=== PATIENT | male | born 1980 | race African-American/Black ===

== ENCOUNTER 2017-02-23 13:35 | Inpatient (IN) | payer OTHER ==
[2017-02-23 15:31] VITALS: BMI 23.1
--- NOTE | 2017-02-23 15:34 | HP ---
CIWA Score - CIWA Score Nausea/Vomitin Muscle Tremors: 2 Anxiety: 2 Agitation: 2 Paroxysmal Sweats: 2 Orientation: 1-Uncertain about Date Tacttile Disturbances: 1-Very Mild Itch/Numbness Auditory Disturbances: 0-None Visual Disturbances: 1-Very Mild Sensitivity Headache: 2-Mild CIWA-Ar Total Score: 15 Admission ROS BHS - HPI Chief Complaint: I want to stop drinking alcohol Allergies/Adverse Reactions: Allergies Allergy/AdvReac Type Severity Reaction Status Date / Time No Known Allergies Allergy Verified 02/23/17 15:35 History of Present Illness: 36 y/o AA male with alcohol dependence presents for rehab. He reports a few detox treatments in the past with no periods of sobriety. Exam Limitations: No Limitations - Ebola screening Have you traveled outside of the country in the last 21 days: No Have you had contact with anyone from an Ebola affected area: No Have you been sick,other than usual withdrawal symptoms: No Do you have a fever: No - Review of Systems Constitutional: No Symptoms Reported EENT: reports: No Symptoms Reported Respiratory: reports: No Symptoms reported Cardiac: reports: No Symptoms Reported GI: reports: Poor Appetite, Poor Fluid Intake, Abdominal cramping : reports: No Symptoms Reported Musculoskeletal: reports: No Symptoms Reported Integumentary: reports: No Symptoms Reported Neuro: reports: Headache, Tremors (mild) Endocrine: reports: No Symptoms Reported Hematology: reports: No Symptoms Reported Psychiatric: reports: Anxious, Depressed Other Systems: Reviewed and Negative Patient History - Patient Medical History Hx Anemia: No Hx Asthma: No Hx Chronic Obstructive Pulmonary Disease (COPD): No Hx Cancer: No Hx Cardiac Disorders: No Hx Congestive Heart Failure: No Hx Hypertension: No Hx Hypercholesterolemia: No Hx Pacemaker: No HX Cerebrovascular Accident: No Hx Seizures: No Hx Dementia: No Hx Diabetes: No Hx Gastrointestinal Disorders: No Hx Liver Disease: No Hx Genitourinary Disorders: No Hx Sexually Transmitted Disorders: No Hx Renal Disease (ESRD): No Hx Thyroid Disease: No Hx Human Immunodeficiency Virus (HIV): No Hx Hepatitis C: No Hx Depression: Yes Hx Suicide Attempt: No Hx Bipolar Disorder: No Hx Schizophrenia: No - Patient Surgical History Past Surgical History: Yes Hx Genitourinary Surgery: Yes (r/t testicular cancer) Hx Orthopedic Surgery: No Anesthesia Reaction: No - PPD History Previous Implant?: Yes Documented Results: Negative w/o proof Implanted On Prior [facility] Admission?: No - Smoking Cessation Smoking history: Current every day smoker Have you smoked in the past 12 months: Yes Aproximately how many cigarettes per day: 10 Hx Chewing Tobacco Use: No Initiated information on smoking cessation: Yes 'Breaking Loose' booklet given: 02/23/17 - Substance & Tx. History Hx Alcohol Use: Yes Hx Substance Use: Yes Substance Use Type: Alcohol, Marijuana Hx Substance Use Treatment: Yes - Substances Abused Alcohol Route: Oral Frequency: Daily Amount used: 2 pints Age of first use: 31 Date of Last Use: 02/23/17 Marijuana/Hashish Route: Smoking Frequency: 1-3 times last 30 days Amount used: $20 Age of first use: 10 Date of Last Use: 02/22/17 Family Disease History - Family Disease History Family History: Unable to Obtain Admission Physical Exam [facility] - Physical General Appearance: Yes: No Apparent Distress, Disheveled HEENTM: Yes: Hearing grossly Normal, Normal ENT Inspection, Normocephalic, Normal Voice Respiratory: Yes: Chest Non-Tender, Lungs Clear, Normal Breath Sounds, No Respiratory Distress, No Accessory Muscle Use Neck: Yes: No masses,lesions,Nodules, Supple, Trachea in good position Breast: Yes: Breast Exam Deferred Cardiology: Yes: Regular Rhythm, Regular Rate, S1, S2 Abdominal: Yes: Normal Bowel Sounds, Non Tender, Flat, Soft Genitourinary: Yes: Within Normal Limits Back: Yes: Normal Inspection Musculoskeletal: Yes: full range of Motion, Gait Steady, Pelvis Stable Extremities: Yes: Normal Capillary Refill, Normal Inspection, Normal Range of Motion Neurological: Yes: information scientist II-XII NML intact, Fully Oriented, Alert, Motor Strength 5/5, Normal Response Integumentary: Yes: Normal Color Lymphatic: Yes: Within Normal Limits - Diagnostic (1) Alcohol dependence with uncomplicated withdrawal Current Visit: Yes Status: Acute (2) Cannabis dependence Current Visit: Yes Status: Acute (3) Nicotine dependence Current Visit: Yes Status: Acute Qualifiers: Nicotine product type: cigarettes Substance use status: uncomplicated Qualified Code(s): F17.210 - Nicotine dependence, cigarettes, uncomplicated Cleared for Admission S - Detox or Rehab [facility] Level of Care: Medically Managed Detox Regimen/Protocol: Librium
[2017-02-23] MEDS ORDERED: diphenhydrAMINE HCL 50 MG CAPSULE PO PRN (16:01)
[2017-02-23] MEDS ORDERED: MENTHOL/PHENOL 1 EACH UD MM PRN (16:01)
[2017-02-23] MEDS ORDERED: IBUPROFEN 400 MG TABLET (FP) PO PRN (16:01)
[2017-02-23] MEDS ORDERED: MAGNESIUM CITRATE 300 ML BOTTLE PO PRN (16:01)
[2017-02-23] MEDS ORDERED: hydrOXYzine PAMOATE 50 MG CAPSULE (FP) PO PRN (16:01)
[2017-02-23] MEDS ORDERED: MAG HYDROX/AL HYDROX/SIMETH 30 ML UNIT-DOSE CUP PO PRN (16:01)
[2017-02-23] MEDS ORDERED: P-EPHED 60MG/TRIPROLIDI 2.5MG TABLET PO PRN (16:01)
[2017-02-23] MEDS ORDERED: MAGNESIUM HYDROX 2400MG/30ML ORAL SUSPENSION 30 ML CUP PO PRN (16:01)
[2017-02-23] MEDS ORDERED: ACETAMINOPHEN 325 MG TABLET (FP) PO PRN (16:01)
[2017-02-23] MEDS ORDERED: chlordiazePOXIDE HCL 25 MG CAPSULE PO ONE (16:01)
[2017-02-23] MEDS ORDERED: chlordiazePOXIDE HCL 25 MG CAPSULE PO PRN (16:01)
[2017-02-23] MEDS ORDERED: LOPERAMIDE HCL 2 MG CAPSULE PO PRN (16:01)
[2017-02-23] MEDS ORDERED: NICOTINE POLACRILEX 2 MG GUM BC PRN (16:01)
[2017-02-23] MEDS ORDERED: guaiFENesin/D-METHORPHAN HB 10 ML UNIT-DOSE CUPS PO PRN (16:01)
[2017-02-23] MEDS: chlordiazePOXIDE HCL 25 MG CAPSULE PO SCH ×3 (20:31→22:38)
[2017-02-23] MEDS: NICOTINE 14 MG/24 HOURS TOPICAL PATCH TD SCH (20:32)
[2017-02-23] MEDS ORDERED: THIAMINE HCL 100 MG TABLET (FP) PO SCH (22:00)
[2017-02-24] MEDS: chlordiazePOXIDE HCL 25 MG CAPSULE PO SCH ×2 (06:05→11:04)
[2017-02-24 09:30] LABS: MCH 31.7 pg (25.7-33.7); MCHC 33.4 g/dl (32.0-35.9); MEAN CELL VOLUME 94.8 fl (80-96); MEAN PLT VOLUME 7.6 fl (7.5-11.1); PLATELET COUNT 240 K/MM3 (134-434); RDW 12.8 % (11.9-15.9); WHITE BLOOD COUNT 4.1 K/mm3 (4.0-10.0)
[2017-02-24 09:39] LABS: ALBUMIN 3.5 g/dl (3.4-5.0); ANION GAP 10 (8-16); CALCIUM 8.6 mg/dL (8.5-10.1); CO2 27 mmol/L (21-32); GLUCOSE,RANDOM 99 mg/dL (74-106)
[2017-02-24 09:43] LABS: ALK PHOS 75 U/L (45-117); BILIRUBIN,TOTAL 0.4 mg/dL (0.2-1.0); COCKROFT - GAULT 115.98; CREATININE 0.8 mg/dL (0.7-1.3); SGOT/AST 21 U/L (15-37); SGPT/ALT 27 U/L (12-78); TOT PROT 6.4 g/dl (6.4-8.2)
[2017-02-24] MEDS ORDERED: PRENATAL VITAMINS W/ FOLIC ACID TABLET (FP) PO SCH (10:00)
[2017-02-24] MEDS: NICOTINE 14 MG/24 HOURS TOPICAL PATCH TD SCH (11:04)
--- NOTE | 2017-02-24 12:57 | PN ---
S CIWA - CIWA Score Nausea/Vomitin Muscle Tremors: 4-Moderate,w/Arms Extend Anxiety: 4-Mod. Anxious/Guarded Agitation: 4-Moderately Restless Paroxysmal Sweats: No Perspiration Orientation: 0-Oriented Tacttile Disturbances: 0-None Auditory Disturbances: 0-None Visual Disturbances: 0-None Headache: 2-Mild CIWA-Ar Total Score: 17 BHS Progress Note (SOAP) Subjective: Anxious, sweating, nausea, interrupted sleep Objective: 02/24/17 12:55 Last Vital Signs Temp Pulse Resp BP Pulse Ox 97.6 F 90 18 126/84 02/24/17 06:19 02/24/17 06:19 02/24/17 06:19 02/24/17 06:19 Laboratory Tests 02/24/17 02/24/17 02/24/17 06:20 06:20 06:20 WBC 4.1 RBC 4.30 Hgb 13.6 Hct 40.7 MCV 94.8 MCHC 33.4 RDW 12.8 Plt Count 240 MPV 7.6 Sodium 145 Potassium 3.6 Chloride 108 H Carbon Dioxide 27 Anion Gap 10 BUN 10 Creatinine 0.8 Creat Clearance w eGFR > 60 Random Glucose 99 Calcium 8.6 Total Bilirubin 0.4 AST 21 ALT 27 Alkaline Phosphatase 75 Total Protein 6.4 Albumin 3.5 RPR Titer Nonreactive Labs noted Assessment: 02/24/17 12:56 Withdrawal symptoms Plan: Continue detox
[2017-02-24] MEDS ORDERED: chlordiazePOXIDE HCL 25 MG CAPSULE PO SCH (17:00)
[2017-02-24 18:36] VITALS: BP 126/73; PULSE 83; TEMP 97.7
--- NOTE | 2017-02-25 11:18 | EKG ---
Test Reason : Blood Pressure : / mmHG Vent. Rate : 095 BPM Atrial Rate : 095 BPM P-R Int : 192 ms QRS Dur : 092 ms QT Int : 362 ms P-R-T Axes : 064 074 053 degrees QTc Int : 454 ms NORMAL SINUS RHYTHM MINIMAL VOLTAGE CRITERIA FOR LVH, MAY BE NORMAL VARIANT BORDERLINE ECG NO PREVIOUS ECGS AVAILABLE Confirmed by INA GARCIA MD ([id number]) on 02/25/2017 11:18:19 AM Referred By: Confirmed By:INA GARCIA MD
[2017-02-25] MEDS ORDERED: chlordiazePOXIDE 5 MG CAPSULE PO SCH (17:00)
[2017-02-26] MEDS ORDERED: chlordiazePOXIDE HCL 10 MG CAPSULE PO SCH (17:00)
--- NOTE | 2017-02-27 17:48 | DS ---
[facility] Detox Discharge Summary Admission Date: 02/23/17 Discharge Date: 02/24/17 - History Present History: Alcohol Dependence, Cannabis Dependence Pertinent Past History: Denies - Physical Exam Results Vital Signs: Vital Signs Temperature 97.7 F 02/24/17 18:36 Pulse Rate 83 02/24/17 18:36 Respiratory Rate 18 02/24/17 18:36 Blood Pressure 126/73 02/24/17 18:36 O2 Sat by Pulse Oximetry (%) Pertinent Admission Physical Exam Findings: Withdrawal sx. Laboratory Last Values WBC 4.1 K/mm3 (4.0-10.0) 02/24/17 06:20 RBC 4.30 M/mm3 (4.00-5.60) 02/24/17 06:20 Hgb 13.6 GM/dL (11.7-16.9) 02/24/17 06:20 Hct 40.7 % (35.4-49) 02/24/17 06:20 MCV 94.8 fl (80-96) 02/24/17 06:20 MCHC 33.4 g/dl (32.0-35.9) 02/24/17 06:20 RDW 12.8 % (11.9-15.9) 02/24/17 06:20 Plt Count 240 K/MM3 (134-434) 02/24/17 06:20 MPV 7.6 fl (7.5-11.1) 02/24/17 06:20 Sodium 145 mmol/L (136-145) 02/24/17 06:20 Potassium 3.6 mmol/L (3.5-5.1) 02/24/17 06:20 Chloride 108 mmol/L (98-107) H 02/24/17 06:20 Carbon Dioxide 27 mmol/L (21-32) 02/24/17 06:20 Anion Gap 10 (8-16) 02/24/17 06:20 BUN 10 mg/dL (7-18) 02/24/17 06:20 Creatinine 0.8 mg/dL (0.7-1.3) 02/24/17 06:20 Creat Clearance w eGFR > 60 (>60) 02/24/17 06:20 Random Glucose 99 mg/dL (74-106) 02/24/17 06:20 Calcium 8.6 mg/dL (8.5-10.1) 02/24/17 06:20 Total Bilirubin 0.4 mg/dL (0.2-1.0) 02/24/17 06:20 AST 21 U/L (15-37) 02/24/17 06:20 ALT 27 U/L (12-78) 02/24/17 06:20 Alkaline Phosphatase 75 U/L (45-117) 02/24/17 06:20 Total Protein 6.4 g/dl (6.4-8.2) 02/24/17 06:20 Albumin 3.5 g/dl (3.4-5.0) 02/24/17 06:20 RPR Titer Nonreactive (NONREACTIVE) 02/24/17 06:20 Labs noted - Medication Discharge Medications: Ambulatory Orders NK [No Known Home Medication] 02/23/17 - Diagnosis (1) Alcohol dependence with uncomplicated withdrawal Status: Acute (2) Cannabis dependence Status: Acute (3) Nicotine dependence Status: Acute Qualifiers: Nicotine product type: cigarettes Substance use status: uncomplicated Qualified Code(s): F17.210 - Nicotine dependence, cigarettes, uncomplicated - AMA Did Patient Leave Against Medical Advice: Yes
== END 2017-02-24 19:18 | disposition left against medical advice (07) | DRG 770 ==
LOC: YASAS 13:35 → Y3N 17:07
PROVIDERS: ADMIT Internal Medicine; ATTEND Internal Medicine
PROC: HZ2ZZZZ Detoxification Services for Substance Abuse Treatment (ICD-10-PCS; principal; 2017-02-23)
DX: F10.230 Alcohol dependence with withdrawal, uncomplicated (principal); F12.20 Cannabis dependence, uncomplicated; F17.210 Nicotine dependence, cigarettes, uncomplicated; Z85.47 Personal history of malignant neoplasm of testis
CPT/HCPCS: 36415; 80053; 85027; 86593; 93005; 93010